=== PATIENT | male | born 1965 | race Caucasian/White ===

== ENCOUNTER 2021-09-05 10:40 | Emergency (ER) | payer BC ==
--- OUTSIDE RECORDS SUMMARY | 2021-09-05 10:42 | XMS REPORT | Continuity of Care Document ---
:1965 Author Organization [facility] Address [address] [place] [address] Care Team Providers Name Role Phone JESE Primary Care Physician Unavailable Lab, Fam Pob I Attending Clinician Unavailable Valarie HARRISON Attending Clinician Payers Payer Name Policy Type Policy Number Effective Date Expiration Date S ource Problems This patient has no known problems. Allergies, Adverse Reactions, Alerts Allergy Allergy Status Severity Reaction(s) Onset Inactive Treating Comm ents Source Name Type Date Date Clinician NO KNOWN Drug Active Univers ALLERGIE Class ity of S [facility] Social History Social Habit Start Date Stop Date Quantity Comments Source Sex Assigned At [facility] Branch Tobacco use and 2017-01-25 2017-01-25 Never used [facility] exposure 00:00:00 00:00:00 [facility] Smoking Status Start Date Stop Date Source Never smoker [facility] Medications Ordered Filled Start Stop Current Ordering Indication Dosage Frequency Signature Comments Components Source Medication Medication Date Date Medication? Clinician (SIG) Name Name CETIRIZINE 2016-04 Yes Take by Uni vers HCL (ZYRTEC 0-16 mouth. ity of ORAL) 21:15: [place] [facility] FEXOFENADIN 2016-04 Yes Take by Un jennifer E HCL 0-16 mouth. ity of (DREAD 21:15: [place] ORAL) [facility] clindamycin Yes Univer s 300 mg 8-06 ity of capsule 00:00: [place] [facility] amoxicillin Yes Univer s -clavulanat 8-06 ity of e 875-125 00:00: [place] mg per 00 Medical tablet Branch acetaminoph Yes Univer s en-codeine 8-06 ity of 300-30 mg 00:00: [place] tablet 00 Medical Monitor Procedures This patient has no known procedures. Encounters Start End Encounter Admission Attending Care Care Encounter Source Date/Time Date/Time Type Type Clinicians Facility Department ID 2021-04-16 2021-04-16 Outpatient [facility] [id number] Univers 17:00:00 17:00:00 [id number] ity [facility] [place] 2019-11-13 2019-11-13 Laboratory Lab, Adc Fam Pob I [facility] 1.2. [id number] Univers 14:53:33 15:13:33 Only [facility] Heather [facility] [id number] ity of [place] [id number] [place] as [place] [id number] [place] [id number] [address] One 2019-11-13 2019-11-13 Outpatient R [facility] [id number] Univers 15:00:00 15:00:00 ity of [facility] 2019-11-13 2019-11-13 Outpatient R [facility] [id number] -[id number] Univers 15:00:00 15:00:00 ity [facility] [place] Results This patient has no known results.
[2021-09-05] MEDS ORDERED: ONDANSETRON 4 MG/2 ML VIAL ONE (11:11)
[2021-09-05] MEDS ORDERED: KETOROLAC 30 MG/ML INJ ONE (11:11)
[2021-09-05 11:14] LABS: Urine Blood 3+ (Negative); Urine Glucose Negative (Negative); Urine Protein 1+ (Negative); Urine Specific Gravity >=1.030 (1.005-1.030)
[2021-09-05 11:16] LABS: Absolute Lymphocytes (CBC) 1.6 K/uL (0.7-4.9); Hematocrit 47.3 % (39.6-49.0); Lymphocytes % 25.1 % (15.3-44.8); MPV 7.9 fL (7.6-11.3); RBC Red Blood Cell Count 5.15 M/uL (4.33-5.43)
[2021-09-05] MEDS ORDERED: NA CHLORIDE 0.9% 1,000 ML ONE (11:17)
[2021-09-05 11:32] LABS: Albumin 4.1 g/dL (3.4-5.0); Bilirubin Total 0.3 mg/dL (0.2-1.0); Potassium 3.6 mmol/L (3.5-5.1); Protein, Total 8.2 g/dL (6.4-8.2)
--- NOTE | 2021-09-05 11:51 | RAD REPORT ---
EXAM DESCRIPTION: CT - Stone Protocol - 09/05/2021 11:21 am CLINICAL HISTORY: Abdominal pain. Left flank pain COMPARISON: None. TECHNIQUE: Computed axial tomography of the abdomen pelvis was obtained without oral or IV contrast. Lack of IV and oral contrast limits evaluation of solid organs, bowel, and vessels. Coronal reformat charles images were obtained and reviewed. All CT scans are performed using dose optimization technique as appropriate and may include automated exposure control or mA/KV adjustment according to patient size. FINDINGS: Mild left hydronephrosis. A renal calculus is not seen. Left ureter is mildly dilated. 2 m illimeter calculus distal left ureter. No bladder calculus. Small inguinal hernias contain fat The liver, spleen, pancreas and adrenals appear grossly normal There is no evidence of diverticulitis. Small umbilical hernia Appendicoliths present within the appendix. No stranding within the adjacent fat. IMPRESSION: 2 millimeter calculus distal left ureter resulting in mild left hydronephrosis
[2021-09-05] MEDS ORDERED: MAGNESIUM SULFATE 1 gm IVPB 1 GM/100 ML BAG IV ONE (12:17)
[2021-09-05] MEDS ORDERED: MORPHINE 4 MG/ML SYR ONE (12:17)
[2021-09-05] MEDS ORDERED: TAMSULOSIN 0.4 MG SR CAP ONE (12:17)
[2021-09-05] MEDS ORDERED: HYDROMORPHONE HCL 1 MG/ML INJ ONE (12:53)
[2021-09-05] MEDS ORDERED: FENTANYL CITR 100 MCG/2 ML ONE (13:44)
--- NOTE | 2021-09-05 14:52 | ER ---
Nurse's Notes [facility] Name: Nicholas Camacho Age: 55 yrs Sex: Male : 1965 Arrival Date: 09/05/2021 Time: 10:40 Bed DIS4 Private MD: Diagnosis: Calculus of ureter Presentation: 09/05 10:46 Chief complaint: Patient states: left low back pain radiating to groin, feels like a iw kidney stone. Coronavirus screen: At this time, the client does not indicate any symptoms associated with coronavirus-19. Ebola Screen: Patient negative for fever greater than or equal to 101.5 degrees Fahrenheit, and additional compatible Ebola Virus Disease symptoms Patient denies exposure to infectious person. Patient denies travel to an Ebola-affected area in the 21 days before illness onset. No symptoms or risks identified at this time. Initial Sepsis Screen: Does the patient meet any 2 criteria? No. Patient's initial sepsis screen is negative. Does the patient have a suspected source of infection? No. Patient's initial sepsis screen is negative. Risk Assessment: Do you want to hurt yourself or someone else? Patient reports no desire to harm self or others. Onset of symptoms. 10:46 Method Of Arrival: Ambulatory iw 10:46 Acuity: JOSUÉ 3 iw Triage Assessment: 14:47 Pain: Complains of pain in back Pain currently is 1 out of 10 on a pain scale. Quality jh6 of pain is described as aching, Alleviated by medications. 15:02 General: Behavior is calm, cooperative. jh6 Historical: - Allergies: 10:47 No Known Allergies; iw Assessment: 12:59 Reassessment: Patient states symptoms have improved. iw 14:35 Reassessment: Patient appears in no apparent distress at this time. Patient and/or iw family updated on plan of care and expected duration. Pain level reassessed. Patient is alert, oriented x 3, equal unlabored respirations, skin warm/dry/pink. Patient states feeling better. Patient states symptoms have improved. Vital Signs: 11:05 BP 146 / 93; Pulse 89; Resp 16; Pulse Ox 100% on R/A; iw 14:46 BP 116 / 74; Pulse 80; Resp 16; Pulse Ox 99% ; Pain 1/10; jh6 ED Course: 10:40 Patient arrived in ED. ja2 10:41 Mickail, Braeden, PA is PHCP. [facility] 10:41 Jaskaran Oh MD is Attending Physician. m 10:47 Triage completed. iw 11:04 Rika Garcia, RN is Primary Nurse. iw 11:06 Arm band placed on. iw 11:16 Inserted saline lock: 20 gauge in right wrist, using aseptic technique. Blood collected.7 11:23 CT Stone Protocol In Process Unspecified. EDMS 14:00 Adult w/ patient. 6 14:43 No provider procedures requiring assistance completed. IV discontinued, intact, jh6 bleeding controlled, No redness/swelling at site. Pressure dressing applied. Administered Medications: 11:10 Drug: Zofran (Ondansetron) 4 mg Route: IVP; Site: right wrist; iw 11:10 Drug: Ketorolac 30 mg Route: IVP; Site: right wrist; iw 11:14 Drug: NS 0.9% 1000 ml Route: IV; Rate: 1 bolus; Site: right wrist; iw 12:18 Drug: morphine 4 mg Route: IVP; Infused Over: 4 mins; Site: left wrist; iw 12:19 Drug: Flomax (tamsulosin) 0.4 mg Route: PO; iw 12:50 Drug: Dilaudid (HYDROmorphone) 1 mg Route: IVP; Site: right wrist; iw 12:58 Drug: Magnesium Sulfate 1 grams Route: IVPB; Infused Over: 1 hrs; Site: right wrist; iw 13:53 Drug: fentaNYL (PF) 50 mcg Route: IVP; Site: right wrist; iw Outcome: 14:51 Discharge ordered by . [facility] 15:03 Discharged to home ambulatory. [facility] 15:03 Condition: improved 15:03 Discharge instructions given to patient, Instructed on discharge instructions, follow up and referral plans. Demonstrated understanding of instructions, follow-up care, medications, Prescriptions given X 4. 15:03 Patient left the ED. 6 Signatures: Dispatcher [employer] EDNJ Braeden Parker PA PA Rika Perez, RN RN Tarsha Forrester 2 Alejandra Brown RN RN [facility] Tasneem Varner 7
--- NOTE | 2021-09-05 14:52 | EDPHYS ---
Physician Documentation [facility] Name: Nicholas Camacho Age: 55 yrs Sex: Male : 1965 Arrival Date: 09/05/2021 Time: 10:40 Bed DIS4 Private MD: ED Physician Jaskaran Oh HPI: 09/05 10:43 This 55 yrs old Male presents to ER via Ambulatory with complaints of Possible Kidney jmm Stone. 10:43 The patient complains of pain in the left flank. The pain does not radiate. Onset: The jmm symptoms/episode began/occurred acutely. Modifying factors: The symptoms are alleviated by nothing. the symptoms are aggravated by nothing. Associated signs and symptoms: Pertinent negatives: dysuria, fever. The patient has not experienced similar symptoms in the past. Historical: - Allergies: 10:47 No Known Allergies; iw ROS: 10:43 Constitutional: Negative for fever, chills, and weight loss, Cardiovascular: Negative jmm for chest pain, palpitations, and edema, Respiratory: Negative for shortness of breath, cough, wheezing, and pleuritic chest pain. 10:43 Back: Positive for flank pain. 10:43 All other systems are negative. Exam: 10:43 Constitutional: This is a well developed, well nourished patient who is awake, alert, jmm and in no acute distress. Head/Face: atraumatic. Eyes: EOMI, no conjunctival erythema appreciated ENT: Moist Mucus Membranes Neck: Trachea midline, Supple Chest/axilla: Normal chest wall appearance and motion. Cardiovascular: Regular rate and rhythm. No edema appreciated Respiratory: Normal respirations, no respiratory distress appreciated Abdomen/GI: Non distended, soft 10:43 Skin: General appearance color normal 10:43 Back: CVA tenderness, that is moderate, is noted on the left. 10:43 Musculoskeletal/extremity: ROM: intact in all extremities. 10:43 Skin: Appearance: Color: normal in color. 10:43 Neuro: Orientation: is normal, Mentation: is normal, Memory: is normal. 10:43 Psych: Behavior/mood is pleasant, cooperative. Vital Signs: 11:05 BP 146 / 93; Pulse 89; Resp 16; Pulse Ox 100% on R/A; iw 14:46 BP 116 / 74; Pulse 80; Resp 16; Pulse Ox 99% ; Pain 1/10; jh6 MDM: 10:43 Patient medically screened. [facility] 14:41 Data reviewed: vital signs, nurses notes. Counseling: I had a detailed discussion with [facility] the patient and/or guardian regarding: the historical points, exam findings, and any diagnostic results supporting the discharge/admit diagnosis, lab results, radiology results. 09/05 10:43 Order name: CBC with Diff [facility] 09/05 10:43 Order name: CMP; Complete Time: 11:39 [facility] 09/05 10:43 Order name: Lipase; Complete Time: 11:39 [facility] 09/05 10:43 Order name: CT Stone Protocol; Complete Time: 11:54 [facility] 09/05 11:14 Order name: Urine Dipstick-Ancillary; Complete Time: 11:17 [facility] 09/05 10:43 Order name: IV Saline Lock; Complete Time: 11:10 [facility] 09/05 10:43 Order name: Labs collected and sent; Complete Time: 11:10 [facility] 09/05 10:43 Order name: Urine Dipstick-Ancillary (obtain specimen); Complete Time: 11:10 [facility] Administered Medications: 11:10 Drug: Zofran (Ondansetron) 4 mg Route: IVP; Site: right wrist; iw 11:10 Drug: Ketorolac 30 mg Route: IVP; Site: right wrist; iw 11:14 Drug: NS 0.9% 1000 ml Route: IV; Rate: 1 bolus; Site: right wrist; iw 12:18 Drug: morphine 4 mg Route: IVP; Infused Over: 4 mins; Site: left wrist; iw 12:19 Drug: Flomax (tamsulosin) 0.4 mg Route: PO; iw 12:50 Drug: Dilaudid (HYDROmorphone) 1 mg Route: IVP; Site: right wrist; iw 12:58 Drug: Magnesium Sulfate 1 grams Route: IVPB; Infused Over: 1 hrs; Site: right wrist; iw 13:53 Drug: fentaNYL (PF) 50 mcg Route: IVP; Site: right wrist; iw Disposition: 18:20 Co-signature as Attending Physician, Jaskaran Oh MD. rn Disposition Summary: 09/05/21 14:51 Discharge Ordered Location: Home [facility] Condition: Stable [facility] Diagnosis - Calculus of ureter [facility] Followup: [facility] - With: Private Physician - When: 2 - 3 days - Reason: Recheck today's complaints, Continuance of care, Re-evaluation by your physician Discharge Instructions: - Discharge Summary Sheet [facility] - Kidney Stones [facility] - Dietary Guidelines to Help Prevent Kidney Stones [facility] Forms: - Medication Reconciliation Form [facility] - Thank You Letter [facility] - Antibiotic Education [facility] - Prescription Opioid Use [facility] Prescriptions: - Ibuprofen 800 mg Oral Tablet - take 1 tablet by ORAL route every 12 hours As needed take with food; 20 tablet; [facility] Refills: 0, Product Selection Permitted - ondansetron 4 mg Oral tablet,disintegrating - take 1 tablet by ORAL route every 4-6 hours; 20 tablet; Refills: 0, Product [facility] Selection Permitted - tamsulosin 0.4 mg Oral capsule - take 1 capsule by ORAL route once daily 1/2 hour following the same meal each [facility] day; 20 capsule; Refills: 0, Product Selection Permitted - Ultracet 37.5-325 mg Oral Tablet - take 2 tablet by ORAL route every 6 hours - for up to 5 days; do not exceed 8 [facility] tablets per day.; 30 tablet; Refills: 0, Product Selection Permitted Signatures: Dispatcher [employer] Braeden Nelson PA PA [facility] Rika Garcia, RN RN iw Jaskaran Oh MD MD rn
[2021-09-05 15:12] VITALS: BP 116/74; O2SAT 99
== END 2021-09-05 15:03 | disposition home or self-care (01) ==
LOC: ER 10:40
DX: N20.1 Calculus of ureter (principal)
CPT/HCPCS: 85025; 36415; 81003; 83690; 80053; 76377; 74176; 99284; J3010; J3475; J1170; J7030; J2405